=== PATIENT | male | born 1990 | race Two or more races ===

== ENCOUNTER 2023-10-30 01:50 | Emergency (ER) | payer OTHER ==
[~2023-10-30] VITALS: Ht 185.4 cm; Wt 84.1 kg
[2023-10-30 02:08] VITALS: BP 122/86; PULSE 126; RESP 20; TEMP 99.7; O2SAT 99
== END 2023-10-30 02:35 | disposition left against medical advice (07) ==
LOC: ER 01:52
DX: R44.3 Hallucinations, unspecified (principal); F60.0 Paranoid personality disorder; Z53.21 Procedure and treatment not carried out due to patient leaving prior to being seen by health care provider
CPT/HCPCS: 99281

== ENCOUNTER 2023-10-30 03:07 | Emergency (ER) | payer OTHER ==
[~2023-10-30] VITALS: Ht 185.4 cm; Wt 84.0 kg
[2023-10-30 03:12] VITALS: BP 131/78; PULSE 129; RESP 20; TEMP 98.8; O2SAT 98
== END 2023-10-30 03:41 ==
LOC: ER 03:07
DX: T75.4XXA Electrocution, initial encounter (principal); F22 Delusional disorders; X58.XXXA Exposure to other specified factors, initial encounter; Y93.89 Activity, other specified; Y92.89 Other specified places as the place of occurrence of the external cause; Y99.8 Other external cause status
CPT/HCPCS: 99283

== ENCOUNTER 2024-07-06 14:18 | Emergency (ER) | payer MEDICAID ==
[~2024-07-06] VITALS: Ht 185.4 cm; Wt 89.1 kg
[2024-07-06 14:28] VITALS: TEMP 100.4
[2024-07-06] MEDS ORDERED: LORazepam 2 mg/ml vial IV ONE ×2 (14:55→15:55)
[2024-07-06] MEDS: normal saline 1000ML IV soln IVB ONE (15:22)
[2024-07-06 15:30] LABS: BASOPHILS % (AUTO) 0.4 % (0-1); EOSINOPHILS % (AUTO) 0.1 % (0-6); HEMATOCRIT 42.4 % (42.0-52.0); HEMOGLOBIN 14.6 g/dl (14.0-17.9); LYMPHOCYTES # (AUTO) 1.1 X10'3 (1.1-4.8); LYMPHOCYTES % (AUTO) 9.9 % (21-51); MEAN CORPUSCULAR HEMOGLOBIN 30.9 PG (27.0-31.0); MEAN CORPUSCULAR HGB CONC 34.5 g/dL (33.0-36.5); MEAN CORPUSCULAR VOLUME 89.4 FL (78-98); MONOCYTES # (AUTO) 0.7 X10'3 (0-0.9); MONOCYTES % (AUTO) 5.7 % (2-12); NEUTROPHILS # (AUTO) 9.6 X10'3 (1.8-7.7); NEUTROPHILS % (AUTO) 83.9 % (42-75); PLATELET COUNT 219 X10'3 (140-440); RED BLOOD COUNT 4.74 X10'6 (4.70-6.10); RED CELL DISTRIBUTION WIDTH 13.9 % (11.5-14.5); WHITE BLOOD COUNT 11.5 X10'3 (4.5-11.0)
[2024-07-06 15:43] LABS: ALANINE AMINOTRANSFERASE 34 U/L (12-78); ALBUMIN 4.7 G/DL (3.4-5.0); ALBUMIN/GLOBULIN RATIO 1.2 (1.1-1.5); ALKALINE PHOSPHATASE 58 IU/L (46-116); ANION GAP 11 (8-16); ASPARTATE AMINO TRANSFERASE 29 U/L (10-37); BILIRUBIN,TOTAL 1.4 MG/DL (0.1-1.0); BLOOD UREA NITROGEN 16 MG/DL (7-18); BUN/CREATININE RATIO 16.3 (10.0-20.0); CHLORIDE 101 MMOL/L (99-107); CREATININE 0.98 MG/DL (0.60-1.10); GLUCOSE 107 MG/DL (70-104); POTASSIUM 3.8 MMOL/L (3.5-5.1); SODIUM 136 MMOL/L (135-145); TOTAL CARBON DIOXIDE 24.1 MMOL/L (24-32); TOTAL PROTEIN 8.6 G/DL (6.4-8.2); eCRCL 122 ML/MIN; eGFR 89 ML/MIN
[2024-07-06 15:51] LABS: PRO BRAIN NATRIURETIC PEPTIDE 295 PG/ML (0-125)
[2024-07-06 16:15] VITALS: BP 150/98; PULSE 122; RESP 16; O2SAT 98
== END 2024-07-06 17:36 ==
LOC: ER 14:19
DX: F15.10 Other stimulant abuse, uncomplicated (principal); R00.0 Tachycardia, unspecified; Z65.3 Problems related to other legal circumstances
CPT/HCPCS: 36415; 71045; 80053; 83880; 84484; 85025; 93005; 96360; 99285; J7030